=== PATIENT | female | born 1945 | race Caucasian/White ===

== ENCOUNTER → 2016-10-29 | Outpatient (CLI) | payer OTHER, BC ==
--- NOTE | 2016-11-02 13:52 | CPEEG ---
[f rep st] ELECTROENCEPHALOGRAM DATE OF STUDY: 10/29/2016 INTERPRETATION: Normal EEG during wakefulness and sleep. There were no potentially epileptogenic ab normalities present during the recording. REPORT: This EEG contains 9 Hz alpha to the posterior head regions. There was no abnormal activatio n at rest, during photic stimulation or hyperventilation. The patient became drowsy and fell asleep during the study. There was no abnormal activation during drowsiness, sleep, or during times of arou víctor. /[id number]/MODL
== END ==
LOC: FCPNEURO 11:06
PROVIDERS: ATTEND Psychiatry & Neurology Neurology
DX: R20.2 Paresthesia of skin (principal)

== ENCOUNTER → 2017-09-10 | Outpatient (CLI) | payer OTHER, BC | LOC: FIMAGING 09-07 13:43 | PROVIDERS: ATTEND Family Medicine | DX: R41.0 Disorientation, unspecified (principal); R90.82 White matter disease, unspecified ==